=== PATIENT | male | born 1990 | race African-American/Black ===

== ENCOUNTER 2017-03-08 22:04 | Emergency (ER) | payer OTHER ==
[2017-03-08 23:58] VITALS: BP 123/76
== END 2017-03-08 23:58 | disposition home or self-care (01) ==
LOC: ED 22:04
DX: R10.13 Epigastric pain (principal)

== ENCOUNTER 2017-04-24 21:03 | Emergency (ER) | payer OTHER ==
[2017-04-24 21:07] VITALS: BP 151/97
== END 2017-04-24 23:16 | disposition left against medical advice (07) ==
LOC: ED 21:03
DX: Z53.21 Procedure and treatment not carried out due to patient leaving prior to being seen by health care provider (principal)

== ENCOUNTER 2017-10-31 10:41 | Emergency (ER) | payer OTHER ==
[~2017-10-31] VITALS: Ht 190.5 cm; Wt 107.0 kg
[2017-10-31 10:47] VITALS: Ht 190.5 cm; Wt 107.0 kg
[2017-10-31 11:08] LABS: microscopic required? NO
[2017-10-31 11:25] LABS: BASOPHIL % 0.3 % (0-2); PLATELET COUNT 303 x10^3mcL (130-400); RED CELL DISTRIBUTION WIDTH 12.9 % (11.5-14.5)
[2017-10-31 11:49] LABS: urine erythrocyte NEGATIVE (NEGATIVE)
[2017-10-31 11:49] LABS: CALCIUM 8.8 mg/dL (8.5-10.1); CARBON DIOXIDE 27.9 mmol/L (21-32); CHLORIDE SERUM 103 mmol/L (98-107); CREATININE SERUM 1.2 mg/dL (0.7-1.3); GFR1 > 60 mL/min; GLUCOSE SERUM 104 mg/dL (74-106); POTASSIUM SERUM 3.3 mmol/L (3.5-5.1); SODIUM SERUM 140 mmol/L (136-145)
[2017-10-31 11:50] LABS: ALKALINE PHOSPHATASE 60 U/L (46-116); ALT/SGPT 46 U/L (16-63); AST/SGOT 29 U/L (15-37); BILIRUBIN TOTAL 0.94 mg/dL (0.20-1.00); TOTAL PROTEIN, SERUM 7.5 g/dL (6.4-8.2)
[2017-10-31 11:55] LABS: T3 TOTAL 1.1 ng/mL
[2017-10-31 12:02] LABS: FREE T4 0.86 ng/dL (0.76-1.46); FREE THYROXINE INDEX 2.1 ug/dL (1.4-4.5); T4(THYROXINE) 5.6 ug/dL (4.7-13.3)
[2017-10-31 12:05] LABS: AMPHETAMINE QUAL UR NONE DETECTED (NEG <=1000)
[2017-10-31 12:53] VITALS: BP 151/92
== END 2017-10-31 12:53 | disposition home or self-care (01) ==
LOC: ED 10:41
PROVIDERS: Emergency Medicine
DX: E87.6 Hypokalemia (principal); I10 Essential (primary) hypertension
CPT/HCPCS: 36415; 84439

== ENCOUNTER 2017-10-31 16:22 | Inpatient (IN) | payer OTHER ==
[~2017-10-31] VITALS: Ht 190.5 cm; Wt 105.4 kg
[2017-10-31 16:24] VITALS: Ht 190.5 cm; Wt 105.4 kg
[2017-10-31 17:21] LABS: CALCIUM 9.4 mg/dL (8.5-10.1); CARBON DIOXIDE 28.3 mmol/L (21-32); CHLORIDE SERUM 103 mmol/L (98-107); CREATININE SERUM 1.1 mg/dL (0.7-1.3); GFR1 > 60 mL/min; GLUCOSE SERUM 83 mg/dL (74-106); POTASSIUM SERUM 3.9 mmol/L (3.5-5.1); SODIUM SERUM 140 mmol/L (136-145)
[2017-10-31 18:59] VITALS: BP 137/72
[2017-10-31 19:20] LABS: CHOLESTEROL/HDL RATIO 2.6; MAGNESIUM 2.2 mg/dL (1.8-2.4); PHOSPHOROUS 3.5 mg/dL (2.5-4.9)
[2017-10-31 22:49] VITALS: BP 116/63
[2017-11-01 05:44] LABS: AMPHETAMINE QUAL UR NONE DETECTED (NEG <=1000)
[2017-11-01 05:51] VITALS: BP 119/41
[2017-11-01 06:02] LABS: BASOPHIL % 0.3 % (0-2); PLATELET COUNT 305 x10^3mcL (130-400); RED CELL DISTRIBUTION WIDTH 13.2 % (11.5-14.5)
[2017-11-01 06:49] LABS: CALCIUM 8.6 mg/dL (8.5-10.1); CHLORIDE SERUM 107 mmol/L (98-107); CREATININE SERUM 1.1 mg/dL (0.7-1.3); GFR1 > 60 mL/min; GLUCOSE SERUM 114 mg/dL (74-106); POTASSIUM SERUM 3.6 mmol/L (3.5-5.1); SODIUM SERUM 141 mmol/L (136-145)
[2017-11-01 08:51] VITALS: BP 112/61
[2017-11-01 13:36] VITALS: BP 145/79
[2017-11-01 16:23] VITALS: BP 135/61
[2017-11-01 21:36] VITALS: BP 107/37
[2017-11-02 05:47] VITALS: BP 114/46
[2017-11-02 07:31] LABS: BASOPHIL % 0.4 % (0-2); PLATELET COUNT 291 x10^3mcL (130-400); RED CELL DISTRIBUTION WIDTH 13.4 % (11.5-14.5)
[2017-11-02 09:06] VITALS: BP 127/47
[2017-11-02 09:41] LABS: CALCIUM 8.4 mg/dL (8.5-10.1); CARBON DIOXIDE 24.3 mmol/L (21-32); CHLORIDE SERUM 106 mmol/L (98-107); GFR1 > 60 mL/min; GLUCOSE SERUM 98 mg/dL (74-106); POTASSIUM SERUM 3.8 mmol/L (3.5-5.1); SODIUM SERUM 141 mmol/L (136-145)
[2017-11-02] MEDS ORDERED: BEN10 PO (13:04)
[2017-11-02] MEDS ORDERED: ONDANSETRON4 M3 PO (13:05)
[2017-11-02] MEDS ORDERED: COL100 PO (13:06)
[2017-11-02 14:13] VITALS: BP 128/67
[2017-11-02 15:12] VITALS: BP 128/67
== END 2017-11-02 15:50 | disposition home or self-care (01) | DRG 48 ==
LOC: ED 16:22 → DU 17:34
PROVIDERS: Emergency Medicine; Family Medicine
DX: G90.9 Disorder of the autonomic nervous system, unspecified (principal); I10 Essential (primary) hypertension; E66.9 Obesity, unspecified; E87.6 Hypokalemia; E78.5 Hyperlipidemia, unspecified; F41.1 Generalized anxiety disorder; G47.33 Obstructive sleep apnea (adult) (pediatric); K59.00 Constipation, unspecified; Z80.9 Family history of malignant neoplasm, unspecified; Z87.891 Personal history of nicotine dependence; Z82.61 Family history of arthritis; Z91.14 Patient's other noncompliance with medication regimen
CPT/HCPCS: 83880; 84439; 87046; 87046-59; G0480; J7030; Q0092; Q0162

== ENCOUNTER 2017-11-06 19:49 | Emergency (ER) | payer OTHER ==
[~2017-11-06] VITALS: Ht 190.5 cm; Wt 108.9 kg
[~2017-11-06 19:49] MED LIST: BEN10 PO; COL100 PO; ONDANSETRON4 M3 PO
[2017-11-06 19:53] VITALS: Ht 190.5 cm; Wt 108.9 kg
[2017-11-06 22:34] LABS: BASOPHIL % 0.5 % (0-2); PLATELET COUNT 279 x10^3mcL (130-400); RED CELL DISTRIBUTION WIDTH 12.8 % (11.5-14.5)
[2017-11-06 22:56] LABS: CARBON DIOXIDE 28.2 mmol/L (21-32); CHLORIDE SERUM 101 mmol/L (98-107); CREATININE SERUM 1.1 mg/dL (0.7-1.3); GFR1 > 60 mL/min; GLUCOSE SERUM 87 mg/dL (74-106); POTASSIUM SERUM 3.5 mmol/L (3.5-5.1); SODIUM SERUM 139 mmol/L (136-145)
[2017-11-06 23:00] LABS: ALBUMIN 3.9 g/dL (3.4-5.0); ALKALINE PHOSPHATASE 57 U/L (46-116); ALT/SGPT 53 U/L (16-63); AST/SGOT 23 U/L (15-37); BILIRUBIN TOTAL 0.3 mg/dL (0.20-1.00); FREE T4 0.77 ng/dL (0.76-1.46); LIPASE 216 IU/L (73-393); MAGNESIUM 2.1 mg/dL (1.8-2.4); TOTAL PROTEIN, SERUM 7.3 g/dL (6.4-8.2)
[2017-11-06 23:13] LABS: microscopic required? NO
[2017-11-06 23:22] LABS: UA SPECIFIC GRAVITY <=1.005 (1.005-1.035); urine erythrocyte NEGATIVE (NEGATIVE)
[2017-11-06 23:32] LABS: AMPHETAMINE QUAL UR NONE DETECTED (NEG <=1000)
[2017-11-07 01:01] VITALS: BP 142/81
== END 2017-11-07 01:01 | disposition home or self-care (01) ==
LOC: ED 19:49
PROVIDERS: Emergency Medicine
DX: R53.1 Weakness (principal); R20.2 Paresthesia of skin; R07.9 Chest pain, unspecified
CPT/HCPCS: 36415; 84439; Q0092

== ENCOUNTER 2017-11-15 18:16 | Emergency (ER) | payer OTHER ==
[~2017-11-15] VITALS: Ht 190.5 cm; Wt 104.3 kg
[2017-11-15 18:35] VITALS: Ht 190.5 cm; Wt 104.3 kg
[2017-11-15 19:14] LABS: BASOPHIL % 0.8 % (0-2); PLATELET COUNT 297 x10^3mcL (130-400); RED CELL DISTRIBUTION WIDTH 12.7 % (11.5-14.5)
[2017-11-15 19:22] LABS: CARBON DIOXIDE 28.5 mmol/L (21-32); CHLORIDE SERUM 102 mmol/L (98-107); CREATININE SERUM 1.2 mg/dL (0.7-1.3); GFR1 > 60 mL/min; GLUCOSE SERUM 82 mg/dL (74-106); POTASSIUM SERUM 3.7 mmol/L (3.5-5.1); SODIUM SERUM 138 mmol/L (136-145)
[2017-11-15 19:26] LABS: ALBUMIN 4.1 g/dL (3.4-5.0); ALKALINE PHOSPHATASE 56 U/L (46-116); ALT/SGPT 47 U/L (16-63); AMYLASE 90 U/L (25-115); AST/SGOT 25 U/L (15-37); BILIRUBIN TOTAL 0.5 mg/dL (0.20-1.00); LIPASE 242 IU/L (73-393); TOTAL PROTEIN, SERUM 7.5 g/dL (6.4-8.2)
[2017-11-15 22:00] VITALS: BP 144/84
== END 2017-11-15 22:00 | disposition home or self-care (01) ==
LOC: ED 18:16
PROVIDERS: Specialist
DX: R10.9 Unspecified abdominal pain (principal)
CPT/HCPCS: 36415; 83880

== ENCOUNTER 2017-11-19 23:47 | Inpatient (IN) | payer OTHER ==
[~2017-11-19] VITALS: Ht 190.5 cm; Wt 101.6 kg
[2017-11-19 23:52] VITALS: Ht 190.5 cm; Wt 101.6 kg
[2017-11-20 00:34] LABS: microscopic required? NO
[2017-11-20 00:38] LABS: BASOPHIL % 0.3 % (0-2); PLATELET COUNT 301 x10^3mcL (130-400); RED CELL DISTRIBUTION WIDTH 12.6 % (11.5-14.5)
[2017-11-20 00:46] LABS: UA SPECIFIC GRAVITY 1.015 (1.005-1.035); urine erythrocyte NEGATIVE (NEGATIVE)
[2017-11-20 00:51] LABS: CARBON DIOXIDE 27.9 mmol/L (21-32); CHLORIDE SERUM 102 mmol/L (98-107); CREATININE SERUM 1.2 mg/dL (0.7-1.3); GFR1 > 60 mL/min; GLUCOSE SERUM 121 mg/dL (74-106); POTASSIUM SERUM 3.1 mmol/L (3.5-5.1); SODIUM SERUM 141 mmol/L (136-145)
[2017-11-20 01:03] LABS: AMPHETAMINE QUAL UR NONE DETECTED (NEG <=1000)
[2017-11-20 01:06] LABS: ALBUMIN 4.3 g/dL (3.4-5.0); ALKALINE PHOSPHATASE 55 U/L (46-116); ALT/SGPT 40 U/L (16-63); AST/SGOT 24 U/L (15-37); BILIRUBIN TOTAL 0.65 mg/dL (0.20-1.00); FREE T4 0.99 ng/dL (0.76-1.46); LIPASE 250 IU/L (73-393); TOTAL PROTEIN, SERUM 7.8 g/dL (6.4-8.2)
[2017-11-20 03:57] VITALS: BP 153/74
[2017-11-20 04:38] LABS: CHOLESTEROL/HDL RATIO 3.2; MAGNESIUM 2.2 mg/dL (1.8-2.4); PHOSPHOROUS 3.4 mg/dL (2.5-4.9)
[2017-11-20 06:23] LABS: CARBON DIOXIDE 25.1 mmol/L (21-32); CHLORIDE SERUM 108 mmol/L (98-107); CREATININE SERUM 1.1 mg/dL (0.7-1.3); GFR1 > 60 mL/min; GLUCOSE SERUM 99 mg/dL (74-106); POTASSIUM SERUM 3.6 mmol/L (3.5-5.1); SODIUM SERUM 143 mmol/L (136-145)
[2017-11-20 08:00] VITALS: BP 143/86
[2017-11-20 10:00] VITALS: BP 130/64
[2017-11-20 12:32] VITALS: BP 100/51
[2017-11-20] MEDS ORDERED: PRI20 PO (13:53)
[2017-11-20] MEDS ORDERED: CAR1 PO (13:53)
[2017-11-20 14:25] VITALS: BP 100/51
== END 2017-11-20 15:17 | disposition home or self-care (01) | DRG 241 ==
LOC: ED 23:47 → DU 11-20 02:29
PROVIDERS: Emergency Medicine; Family Medicine; Internal Medicine Gastroenterology
PROC: 0DB68ZX Excision of Stomach, Via Natural or Artificial Opening Endoscopic, Diagnostic (ICD-10-PCS; principal; 2017-11-20 11:30)
DX: K29.00 Acute gastritis without bleeding (principal); I10 Essential (primary) hypertension; E87.6 Hypokalemia; F41.9 Anxiety disorder, unspecified; G47.30 Sleep apnea, unspecified; K21.9 Gastro-esophageal reflux disease without esophagitis; E78.5 Hyperlipidemia, unspecified; E66.3 Overweight; Z82.61 Family history of arthritis; Z68.28 Body mass index [BMI] 28.0-28.9, adult
CPT/HCPCS: 43235; 83880; 84439; G0480; J1200; J1610; J2060; J2250; J2310; J3010; J3490; J7030; Q0092

== ENCOUNTER 2017-12-08 14:40 | Emergency (ER) | payer OTHER ==
[~2017-12-08] VITALS: Ht 190.5 cm; Wt 105.7 kg
[~2017-12-08 14:40] MED LIST changes: +CAR1 PO; +PRI20 PO
[2017-12-08 14:45] VITALS: Ht 190.5 cm; Wt 105.7 kg
[2017-12-08 17:26] LABS: BASOPHIL % 0.4 % (0-2); CALCIUM 9.1 mg/dL (8.5-10.1); CARBON DIOXIDE 30.5 mmol/L (21-32); CHLORIDE SERUM 101 mmol/L (98-107); CREATININE SERUM 1.1 mg/dL (0.7-1.3); GFR1 > 60 mL/min; GLUCOSE SERUM 86 mg/dL (74-106); PLATELET COUNT 342 x10^3mcL (130-400); POTASSIUM SERUM 3.8 mmol/L (3.5-5.1); RED CELL DISTRIBUTION WIDTH 13.4 % (11.5-14.5); SODIUM SERUM 139 mmol/L (136-145)
[2017-12-08 17:31] LABS: ALBUMIN 4.1 g/dL (3.4-5.0); ALKALINE PHOSPHATASE 69 U/L (46-116); ALT/SGPT 33 U/L (16-63); AST/SGOT 22 U/L (15-37); BILIRUBIN TOTAL 0.58 mg/dL (0.20-1.00); TOTAL PROTEIN, SERUM 7.7 g/dL (6.4-8.2)
[2017-12-08 18:12] VITALS: BP 138/79
== END 2017-12-08 18:12 | disposition home or self-care (01) ==
LOC: ED 14:40
PROVIDERS: Emergency Medicine
DX: K21.9 Gastro-esophageal reflux disease without esophagitis (principal)
CPT/HCPCS: 36415

== ENCOUNTER 2017-12-11 18:20 | Inpatient (IN) | payer OTHER ==
[~2017-12-11] VITALS: Ht 190.5 cm; Wt 105.0 kg
[2017-12-11 18:59] VITALS: Ht 190.5 cm; Wt 105.0 kg
[2017-12-11 20:50] LABS: BASOPHIL % 0.6 % (0-2); PLATELET COUNT 324 x10^3mcL (130-400); RED CELL DISTRIBUTION WIDTH 13.3 % (11.5-14.5)
[2017-12-11 20:59] LABS: CARBON DIOXIDE 30.4 mmol/L (21-32); CHLORIDE SERUM 105 mmol/L (98-107); GFR1 > 60 mL/min; GLUCOSE SERUM 81 mg/dL (74-106); POTASSIUM SERUM 3.6 mmol/L (3.5-5.1); SODIUM SERUM 145 mmol/L (136-145)
[2017-12-11 21:05] LABS: ALBUMIN 4.2 g/dL (3.4-5.0); ALKALINE PHOSPHATASE 66 U/L (46-116); ALT/SGPT 35 U/L (16-63); AST/SGOT 21 U/L (15-37); BILIRUBIN TOTAL 0.3 mg/dL (0.20-1.00); CHOLESTEROL 153 mg/dL (<200); CHOLESTEROL/HDL RATIO 2.8; HDL CHOLESTEROL 54 mg/dL (40-60); LIPASE 205 IU/L (73-393); TOTAL PROTEIN, SERUM 7.6 g/dL (6.4-8.2); TRIGLYCERIDES 74 mg/dL (<150)
[2017-12-11 21:15] LABS: FREE T4 0.87 ng/dL (0.76-1.46); FREE THYROXINE INDEX 1.7 ug/dL (1.4-4.5); T4(THYROXINE) 4.8 ug/dL (4.7-13.3)
[2017-12-11 21:19] LABS: T3 TOTAL 0.8 ng/mL
[2017-12-11] MEDS ORDERED: CHILDREN'S5 MG/5 M1 PO (22:29)
[2017-12-11 23:13] VITALS: BP 132/60
[2017-12-11 23:24] LABS: MAGNESIUM 2.3 mg/dL (1.8-2.4); PHOSPHOROUS 3.6 mg/dL (2.5-4.9)
[2017-12-12 00:14] VITALS: BP 132/60
[2017-12-12 01:38] LABS: microscopic required? NO
[2017-12-12 02:04] LABS: UA SPECIFIC GRAVITY 1.015 (1.005-1.035); urine erythrocyte NEGATIVE (NEGATIVE)
[2017-12-12 02:11] LABS: AMPHETAMINE QUAL UR NONE DETECTED (NEG <=1000)
[2017-12-12 05:33] VITALS: BP 117/56
[2017-12-12 06:08] LABS: BASOPHIL % 0.3 % (0-2); PLATELET COUNT 304 x10^3mcL (130-400); RED CELL DISTRIBUTION WIDTH 13.5 % (11.5-14.5)
[2017-12-12 06:34] LABS: CALCIUM 8.3 mg/dL (8.5-10.1); CARBON DIOXIDE 26.1 mmol/L (21-32); CHLORIDE SERUM 108 mmol/L (98-107); GFR1 > 60 mL/min; GLUCOSE SERUM 109 mg/dL (74-106); MAGNESIUM 2.2 mg/dL (1.8-2.4); PHOSPHOROUS 4.5 mg/dL (2.5-4.9); POTASSIUM SERUM 3.3 mmol/L (3.5-5.1); SODIUM SERUM 144 mmol/L (136-145)
[2017-12-12 09:22] VITALS: BP 128/71
[2017-12-12 12:33] VITALS: BP 126/67
== END 2017-12-12 13:06 | disposition left against medical advice (07) | DRG 243 ==
LOC: ED 18:20 → DU 19:00
PROVIDERS: Family Medicine; Specialist
DX: K21.9 Gastro-esophageal reflux disease without esophagitis (principal); I24.9 Acute ischemic heart disease, unspecified; G47.33 Obstructive sleep apnea (adult) (pediatric); Z53.21 Procedure and treatment not carried out due to patient leaving prior to being seen by health care provider; M94.0 Chondrocostal junction syndrome [Tietze]; E66.3 Overweight; Z87.891 Personal history of nicotine dependence; Z82.61 Family history of arthritis; Z68.28 Body mass index [BMI] 28.0-28.9, adult
CPT/HCPCS: 83880; 84439; 85378; 94150; J2930; J7030; J7620; Q0092; Q0163

== ENCOUNTER 2018-01-30 21:57 | Emergency (ER) | payer OTHER ==
[~2018-01-30] VITALS: Ht 190.5 cm; Wt 107.0 kg
[~2018-01-30 21:57] MED LIST changes: +CHILDREN'S5 MG/5 M1 PO
[2018-01-30 22:30] VITALS: BP 148/79; Ht 190.5 cm; Wt 107.0 kg
[2018-01-31 00:30] LABS: microscopic required? NO
[2018-01-31 01:19] LABS: UA SPECIFIC GRAVITY <=1.005 (1.005-1.035); urine erythrocyte NEGATIVE (NEGATIVE)
== END 2018-01-31 00:43 | disposition home or self-care (01) ==
LOC: ED 21:57
PROVIDERS: Emergency Medicine
DX: R10.9 Unspecified abdominal pain (principal); R30.0 Dysuria; I10 Essential (primary) hypertension; Z91.010 Allergy to peanuts
CPT/HCPCS: 87491; 87591

== ENCOUNTER 2018-02-06 22:29 | Emergency (ER) | payer OTHER ==
[~2018-02-06] VITALS: Ht 190.5 cm; Wt 108.6 kg
[2018-02-06 22:37] VITALS: Ht 190.5 cm; Wt 108.6 kg
[2018-02-07 00:10] VITALS: BP 112/74
== END 2018-02-07 00:10 | disposition home or self-care (01) ==
LOC: ED 22:29
DX: H93.12 Tinnitus, left ear (principal); I10 Essential (primary) hypertension; M54.2 Cervicalgia; Z91.010 Allergy to peanuts
CPT/HCPCS: J1885

== ENCOUNTER 2018-02-09 23:41 | Emergency (ER) | payer OTHER ==
[~2018-02-09] VITALS: Ht 190.5 cm; Wt 108.4 kg
[2018-02-10 00:12] VITALS: Ht 190.5 cm; Wt 108.4 kg
[2018-02-10 03:38] VITALS: BP 147/81
== END 2018-02-10 03:38 | disposition home or self-care (01) ==
LOC: ED 23:41
DX: K44.9 Diaphragmatic hernia without obstruction or gangrene (principal); I10 Essential (primary) hypertension; Z91.010 Allergy to peanuts

== ENCOUNTER 2018-03-27 18:02 | Emergency (ER) | payer OTHER ==
[~2018-03-27] VITALS: Ht 190.5 cm; Wt 106.6 kg
[2018-03-27 18:12] VITALS: Ht 190.5 cm; Wt 106.6 kg
[2018-03-27 19:08] VITALS: BP 155/93
== END 2018-03-27 19:08 | disposition home or self-care (01) ==
LOC: ED 18:02
DX: R10.13 Epigastric pain (principal); I10 Essential (primary) hypertension; F41.9 Anxiety disorder, unspecified
CPT/HCPCS: Q0162

== ENCOUNTER 2018-04-24 21:45 | Emergency (ER) | payer OTHER ==
[~2018-04-24] VITALS: Ht 190.5 cm; Wt 104.3 kg
[2018-04-24 21:50] VITALS: Ht 190.5 cm; Wt 104.3 kg
[2018-04-24 23:52] VITALS: BP 145/86
== END 2018-04-24 23:52 | disposition home or self-care (01) ==
LOC: ED 21:45
DX: R51 Headache (principal); R09.81 Nasal congestion; I10 Essential (primary) hypertension; Z91.010 Allergy to peanuts
CPT/HCPCS: J1885

== ENCOUNTER 2018-06-09 21:57 | Emergency (ER) | payer OTHER ==
[2018-06-09 22:59] LABS: microscopic required? NO
[2018-06-09 23:15] LABS: BASOPHIL % 0.6 % (0-2); PLATELET COUNT 287 x10^3mcL (130-400); RED CELL DISTRIBUTION WIDTH 13.3 % (11.5-14.5)
[2018-06-09 23:27] LABS: CALCIUM 9.3 mg/dL (8.5-10.1); CARBON DIOXIDE 29.7 mmol/L (21-32); CHLORIDE SERUM 105 mmol/L (98-107); CREATININE SERUM 1.3 mg/dL (0.7-1.3); GFR1 > 60 mL/min; GLUCOSE SERUM 90 mg/dL (74-106); POTASSIUM SERUM 4.1 mmol/L (3.5-5.1); SODIUM SERUM 140 mmol/L (136-145)
[2018-06-09 23:32] LABS: ALBUMIN 3.8 g/dL (3.4-5.0); ALKALINE PHOSPHATASE 73 U/L (46-116); ALT/SGPT 24 U/L (16-63); AST/SGOT 22 U/L (15-37); BILIRUBIN TOTAL 0.32 mg/dL (0.20-1.00); TOTAL PROTEIN, SERUM 7.6 g/dL (6.4-8.2)
[2018-06-09 23:32] LABS: urine erythrocyte NEGATIVE (NEGATIVE)
[2018-06-10 00:34] VITALS: BP 132/80
== END 2018-06-10 00:34 | disposition home or self-care (01) ==
LOC: ED 21:57
PROVIDERS: Emergency Medicine
DX: R25.2 Cramp and spasm (principal); R00.2 Palpitations; R53.1 Weakness; R25.1 Tremor, unspecified; R68.2 Dry mouth, unspecified; R25.3 Fasciculation; I10 Essential (primary) hypertension; F41.9 Anxiety disorder, unspecified; Z91.010 Allergy to peanuts
CPT/HCPCS: 36415

== ENCOUNTER 2018-07-09 04:23 | Emergency (ER) | payer OTHER ==
[~2018-07-09] VITALS: Ht 190.5 cm; Wt 105.2 kg
[2018-07-09 04:30] VITALS: Ht 190.5 cm; Wt 105.2 kg
[2018-07-09 05:24] LABS: BASOPHIL % 0.5 % (0-2); CALCIUM 8.9 mg/dL (8.5-10.1); CARBON DIOXIDE 26.3 mmol/L (21-32); CHLORIDE SERUM 104 mmol/L (98-107); GFR1 > 60 mL/min; GLUCOSE SERUM 91 mg/dL (74-106); PLATELET COUNT 260 x10^3mcL (130-400); POTASSIUM SERUM 3.7 mmol/L (3.5-5.1); RED CELL DISTRIBUTION WIDTH 12.8 % (11.5-14.5); SODIUM SERUM 138 mmol/L (136-145)
[2018-07-09 05:30] LABS: ALBUMIN 3.8 g/dL (3.4-5.0); ALKALINE PHOSPHATASE 62 U/L (46-116); ALT/SGPT 49 U/L (16-63); AST/SGOT 20 U/L (15-37); BILIRUBIN TOTAL 0.4 mg/dL (0.20-1.00); LIPASE 257 IU/L (73-393); TOTAL PROTEIN, SERUM 7.3 g/dL (6.4-8.2)
[2018-07-09 06:08] VITALS: BP 138/78
== END 2018-07-09 06:08 | disposition home or self-care (01) ==
LOC: ED 04:23
PROVIDERS: Emergency Medicine
DX: R10.13 Epigastric pain (principal); I10 Essential (primary) hypertension; F41.9 Anxiety disorder, unspecified; Z91.010 Allergy to peanuts; Z91.012 Allergy to eggs; Z86.19 Personal history of other infectious and parasitic diseases
CPT/HCPCS: 36415